=== PATIENT | female | born 1965 | race Caucasian/White ===

== ENCOUNTER → 2019-10-06 14:43 | Outpatient (CLI) | payer SELFPAY ==
--- NOTE | 2019-10-06 14:44 | RAD_ITS ---
STUDY: X-RAY - RIGHT ELBOW REASON FOR EXAM: Female, 54 years old. Elbow pain. Elbow not straighten out. TECHNIQUE: 3 view(s) of the elbow. COMPARISON: None. 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 2 intra-articular osteochondral bodies, one posteriorly and one anteriorly. Small olecranon spur. The soft tissue structures are unremarkable. 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 Electronically Signed: Ernst Lundberg MD at 15:49 EST , Service support ,
--- NOTE | 2019-10-06 14:44 | RAD_ITS ---
STUDY: X-RAY - LEFT HAND REASON FOR EXAM: Pain at the base of the thumb, no specific injury. TECHNIQUE: 3 view(s) of the hand. COMPARISON: None. FINDINGS: Normal radiocarpal articulation. Normal distal radioulnar joint. Normal visualized carpal bones. Normal carpal articulations Normal carpometacarpal articulation of the thumb. Normal second through fifth carpometacarpal joints. There is shortening of the tubular bones,. Normal metacarpophalangeal joint of the thumb. Normal interphalangeal joint of the thumb. There is no fracture of the proximal or distal phalanges of the thumb. Normal metacarpophalangeal joints of the second through fifth fingers. Normal proximal and distal interphalangeal joints of the second through fifth fingers. The soft tissue structures are unremarkable. RAD/Hand Min 3 Views IMPRESSION: Shortening of the tubular bones. Otherwise, unremarkable x-ray examination of the left hand. Electronically Signed: Angel Robertson MD at 15:36 EST Tel , Service support ,
== END ==
PROVIDERS: PCP Family Medicine; Referring Provider Orthopaedic Surgery; Visit Provider Orthopaedic Surgery
DX: M25.521 Pain in right elbow (principal); M79.645 Pain in left finger(s)
CPT/HCPCS: 73080; 73130

== ENCOUNTER → 2021-01-23 14:11 | Outpatient (CLI) | payer SELFPAY ==
[2021-01-23 17:40] LABS: Absolute Lymphocyte Count 1.53 X10^3/uL (0.83-4.51); Absolute Neutrophil Count 5.6 X10^3/uL (2.0-7.7); Basophil# 0.08 X10^3/uL; Eosinophil# 0.21 X10^3/uL; Eosinophils% 2.6 % (0-5); Hematocrit 39.1 % (37-47); Hemoglobin 12.8 g/dL (12.0-15.0); Lymphocyte # 1.53 X10^3/ul (0.83-4.51); Lymphocyte % 19.1 % (19-41); Mean Corp Hgb Conc 32.7 g/dL (32-36); Mean Corpuscular Volume 88.5 fL (81-99); Mean Platelet Vol. 10.4 fl (6.2-12.0); Monocyte# 0.62 X10^3/uL; Monocyte% 7.7 % (0-10); NRBC Flagged by Analyzer 0 % (0-5); Neutrophil # 5.56 X10^3/uL (2.7-7.7); Neutrophil % 69.5 % (47-70); Platelet Count 308 K/mm3 (150-450); RBC Distribution Width CV 12.6 % (11.6-14.6); RBC Distribution Width SD 41.1 fl (35.1-43.9); Red Blood Count 4.42 M/mm3 (4.2-5.4)
[2021-01-23 18:00] LABS: Erythrocyte Sedimentation Rate 26 mm/hr (0-30)
[2021-01-23 18:42] LABS: AST(SGOT) 30 U/L (15-37); Alanine Aminotransfer ALT/SGPT 66 U/L (13-56); Albumin, Serum 3.9 g/dL (3.2-5.0); Alkaline Phosphatase 105 U/L (45-117); Anion Gap 8 (5-15); BUN 14 mg/dL (7-18); CRP 6.07 mg/L (0.0-3.0); Calcium,Total 8.7 mg/dL (8.5-10.1); Chloride 106 mmol/L (98-107); Creatinine, Serum 0.56 mg/dL (0.55-1.02); EST Glomerular Filtration Rate 119 mL/min (>60); Est Glom Filt Rate - Afr Amer 144 mL/min (>60); Globulin 4.1 g/dL (2.2-4.2); Glucose 96 mg/dL (74-106); Potassium 3.5 mmol/L (3.5-5.1); Rheumatoid Factor < 10.0 IU/mL (<15); Sodium Level 139 mmol/L (136-145)
[2021-01-24 09:31] LABS: Hepatitis B Surface Antibody Non-Reactive; Hepatitis B Surface Antigen Non-Reactive (Nonreactive); Hepatitis C Antibody Non-Reactive (Nonreactive)
[2021-01-25 16:37] LABS: ANTINUCLEAR ANTIBODIES DIRECT Positive (Negative)
[2021-01-26 09:15] LABS: CCP IgG Antibodies 6 units (0-19)
== END ==
PROVIDERS: PCP Family Medicine; Referring Provider Internal Medicine Rheumatology; Visit Provider Internal Medicine Rheumatology
DX: M06.4 Inflammatory polyarthropathy (principal); M17.0 Bilateral primary osteoarthritis of knee; I10 Essential (primary) hypertension; E78.5 Hyperlipidemia, unspecified
CPT/HCPCS: 36415; 80053; 85025; 85652; 86038; 86140; 86200; 86431; 86706; 86803; 87340

== ENCOUNTER → 2021-02-18 07:51 | Outpatient (CLI) | payer SELFPAY ==
[2021-02-18 08:55] LABS: EXAGEN MAILED SPECIMEN
[2021-02-18 10:03] LABS: Color, Urine Yellow (Yellow); Glucose, Dipstick Normal (Normal); Ketone-Dipstick Negative (Negative); Leukocyte Esterase-Dipstick 100 /ul (Negative); Nitrite-Dipstick Negative (Negative); Occult Blood-Urine Negative /ul (Negative); Protein-Dipstick Negative (Negative); Specific Gravity, Urine 1.015 (1.002-1.030); Urine Bilirubin Dipstick Negative (Negative); Urine Clarity Sl. Cloudy (Clear); Urine Urobilinogen Normal (Normal); Urine pH 6.5 (5.0 - 8.0)
[2021-02-18 10:11] LABS: International Normalized Ratio 0.9; Partial Thromboplast Time 29.2 Seconds (24.1-36.2); Prothrombin Time (Protime)PT. 11.7 SECONDS (11.7-14.9)
[2021-02-18 10:27] LABS: Protein:Creat Ratio 186 mg/g CRE (0-200)
[2021-02-20 13:23] LABS: Thrombin Time 17.2 sec (0.0-23.0)
[2021-02-21 09:08] LABS: Dilute Prothrombin Time (dPT) 37.2 sec (0.0-55.0); Dilute Russell Viper Venom 39.9 sec (0.0-47.0); Hexagonal Phase Phospholipid 0 sec (0-11); PTT-LA 38.3 sec (0.0-51.9); Thrombin Time 17.7 sec (0.0-23.0)
[2021-02-21 10:18] LABS: Interpretation Comment: (.)
== END ==
PROVIDERS: PCP Family Medicine; Referring Provider Internal Medicine Rheumatology; Visit Provider Internal Medicine Rheumatology
DX: M06.4 Inflammatory polyarthropathy (principal); R76.8 Other specified abnormal immunological findings in serum; M17.0 Bilateral primary osteoarthritis of knee; I10 Essential (primary) hypertension; E78.5 Hyperlipidemia, unspecified; E34.3 Short stature due to endocrine disorder; Z86.19 Personal history of other infectious and parasitic diseases
CPT/HCPCS: 36415; 81002; 82570; 84156; 85598; 85610; 85670; 85730

== ENCOUNTER → 2022-03-21 | Outpatient (CLI) | payer SELFPAY ==
--- NOTE | 2022-03-21 08:57 | NM_ITS ---
CLINICAL: Female, 57 years old. BILAT KNEE PAIN. History of bilateral knee replacement. WHOLE BODY NUCLEAR 3 PHASE BONE SCAN. TECHNIQUE: Following the IV administration of 25.4 mCi of Tc MDP, whole body bone imaging was performed with a gamma camera following a three hour delay. A 3 phase bone scan was obtained. COMPARISON STUDIES : None FINDINGS: Following the injection of the radiopharmaceutical, a three-phase bone scan of the knee joints was obtained including arterial flow as well as delayed images. There is evidence of bilateral knee replacement. Increased radiopharmaceutical uptake is seen along the tibial component of the prosthesis more prominent on the left side. This may represent loosening worse on the left side. Clinical correlation recommended. NM/Bone Scan Three Phase IMPRESSION: Increased uptake in the proximal tibias at the level of the tibial component of the prosthetic knee more prominent on the left side. Loosening should be ruled out. Clinical correlation recommended. Electronically Signed: Alexis Meza MD at 14:17 EDT ,
== END | disposition home or self-care (01) ==
LOC: NM 08:52
PROVIDERS: PCP Family Medicine; Visit Provider Orthopaedic Surgery
DX: Z96.653 Presence of artificial knee joint, bilateral (principal)
CPT/HCPCS: 78315; A9503